=== PATIENT | female | born 1940 | race Caucasian/White ===

== ENCOUNTER 2017-01-26 17:46 | Inpatient (IN) ==
[2017-01-26] MEDS ORDERED: NORCO-5 PO ONE (19:42)
--- NOTE | 2017-01-26 19:42 | PROVIDER DOCUMENTATION ---
HPI-Musculoskeletal Pain/Inj - GENERAL Chief Complaint: Back Pain Stated Complaint: RT HIP,LEG PAIN Time Seen by Provider: 01/26/17 19:19 Source: patient, family (son) - HX OF PRESENT ILLNESS-MUSKULOSKELTAL Nature of Presenting Problem: 76 yo female presents to ER with c/o severe pain to right hip to right ankle since yesterday morning. She has bipolar disorder and her son thought that she was having an episode and took her to [facility] ER for psych evaluation. She was medically cleared but they never did any x-rays. He states that she does have muscle spasms and has even had botox injections to that leg; but this pain seemed more severe in her reaction. She does normally have a contracture to that same leg. On questioning of the son post x-rays, he did state that patient fell 1 month ago. Quality of Pain: reports: aching Severity in ED: severe Onset/Duration: 24 hours ago Timing: still present Modifying Factors: improves with: movement (worsens), palpation (worsens) Any recent injury?: No Similar Symptoms Previously?: Yes Recently seen or treated by another doctor?: No - HIP/PELVIS PAIN/INJURY Hip Pain Location: reports: hip (R) Pain Radiation: reports: lower legs Context / Method of Injury: reports: unknown Associated Symptoms: reports: muscle spasms Review of Systems - Adult - REVIEW OF SYSTEMS - ADULT Constitutional: reports: no symptoms reported Eyes: reports: no symptoms reported Ears, Nose, Mouth & Throat: reports: no symptoms reported Cardiovascular: reports: no symptoms reported Respiratory: reports: no symptoms reported Gastrointestinal: reports: no symptoms reported Genitourinary: reports: no symptoms reported Musculoskeletal: reports: see HPI, bone pain, joint pain Integumentary: reports: no symptoms reported Neurological: reports: no symptoms reported Psychiatric: reports: no symptoms reported Endocrine: reports: no symptoms reported Hematologic/Lymphatic: reports: no symptoms reported Allergic/Immunologic: reports: no symptoms reported All Other Systems: Reviewed and Negative Past History - Adult - PAST MEDICAL HISTORY-ADULT Review of Records: reports: Old Records Reviewed, Nursing Assessment Review, Medications Reviewed, Social history reviewed & non-contributory. Cardiovascular: reports: HTN, hyperlipidemia Neurological: reports: CVA, stroke deficits (right sided) Psychiatric: reports: bipolar - PRIOR SURGERIES/PROCEDURES Surgical/Procedure History: reports: none - IMMUNIZATION STATUS Childhood Immunizations: See Nurse Assessment Flu Vaccine: See Nurse Assessment - FAMILY HISTORY Family History: reviewed, not pertinent - SOCIAL HISTORY Smoking: non-smoker Substance Use: none/never, denies Alcohol Use Frequency: never Living Situation: family (son) Physical Exam-Injury Related - Physical Exam-Injury Related Initial Vital Signs Reviewed: Yes General Appearance: appears well, alert, moderate distress (due to pain) Eyes: PERRL/EOMI Respiratory: lungs clear, normal breath sounds, no respiratory distress Cardiovascular: normal peripheral pulses Peripheral Pulses: dorsalis-pedis (R): 1+, dorsalis-pedis (L): 1+ Extremity: tenderness (flexed position in air, has contractures,) Integumentary: normal color, warm/dry Neurologic: other (broken speech d/t stroke, she seens to answer questions appropriately) Psych/Mental Status: anxious - Glascow Coma Score Best Eye Response (Bren): (4) open spontaneously Best Verbal Response ([place]): (5) oriented Best Motor Response (Bren): (6) obeys commands [place] Total: 15 Progress - PLAN OF CARE/RESULTS Progress/Plan/Lab Results: Vital Signs - 8 hr 01/26/17 17:54 Pulse Rate 128 H Respiratory Rate 18 Blood Pressure 121/67 O2 Sat by Pulse Oximetry 96 Laboratory Results - last 24 hr 01/26/17 01/26/17 01/26/17 20:45 20:45 20:45 WBC 12.36 H RBC 4.54 Hgb 13.7 Hct 39.7 MCV 87.4 MCH 30.2 MCHC 34.5 RDW Std Deviation 12.7 Plt Count 258 MPV 10.6 H Immature Gran % (Auto) 0.5 Neut % (Auto) 77.3 H Lymph % (Auto) 12.1 L [place] % (Auto) 9.9 H Eos % (Auto) 0.1 Baso % (Auto) 0.1 Immature Gran # (Auto) 0.06 H Neut # (Auto) 9.57 H Lymph # (Auto) 1.49 [place] # (Auto) 1.22 H Eos # (Auto) 0.01 Baso # (Auto) 0.01 PT 11.4 INR 1.08 PTT (Actin FS) 25.7 Sodium 140 Potassium 4.0 Chloride 102 Carbon Dioxide 24 L Anion Gap 14 BUN 16 Creatinine 0.7 Estimated GFR/1.73 m2 > 60 BUN/Creatinine Ratio 23 Glucose 125 H Calculated Osmolality 282 Calcium 9.5 Total Bilirubin 0.98 AST 38 H ALT 30 Alkaline Phosphatase 116 H Total Protein 7.0 Albumin 3.7 Globulin 3.3 Albumin/Globulin Ratio 1.1 Orders Category Date Time Status Vega Cath Insertion ORDERED Care 01/26/17 20:23 Active IV Insertion ORDERED Care 01/26/17 20:20 Completed ANKLE COMPLETE RIGHT [RAD] Stat Exams 01/26/17 19:39 Taken CHEST-1 VIEW [RAD] Stat Exams 01/26/17 19:39 Taken FEMUR 1 VIEW RIGHT [RAD] Stat Exams 01/26/17 19:39 Taken LOWER LEG-RIGHT [RAD] Stat Exams 01/26/17 19:39 Taken PELVIS W/O CONTRAST [CT] Stat Exams 01/26/17 21:06 Ordered PELVIS [RAD] Stat Exams 01/26/17 20:23 Taken CBC WITH ELECTRONIC DIFF [HEME] Stat Lab 01/26/17 20:45 Completed COMPREHENSIVE METABOLIC PANEL [CHEM] Stat Lab 01/26/17 20:45 Completed PROTIME WITH INR [COAG] Stat Lab 01/26/17 20:45 Completed PTT [COAG] Stat Lab 01/26/17 20:45 Completed URINALYSIS W/POSS RFLX CULT [URINALYSIS] Stat Lab 01/26/17 20:23 Uncollected Hydrocodone/APAP 5 mg/325 mg [Lennox-5] Med 01/26/17 19:42 Discontinued 1 each PO NOW ONE Morphine Med 01/26/17 20:51 Discontinued 1 mg IV NOW ONE Ondansetron [Zofran] Med 01/26/17 20:51 Discontinued 4 mg IV NOW ONE EKG [EKG] Stat Ther 01/26/17 20:44 Ordered 1999-Discussed patient case with Dr. Manuel; he agreed with admission. Result Diagrams: 01/26/17 20:45 01/26/17 20:45 - XRAY 1 XRAY: Right XRAY Study: Hip Impression: Abnormal (displaced fermoral neck fracture) XRAY Interpretation: Interpreted by Dr. Manuel - CONSULTS/PCP/HOSPITALIST Notification #1 *Consult/PCP/Hospitalist*: Sr. Carr Time Discussed: 20:56 (reconciliation accountant orthopedic doctor) Consult Disposition: other (will consult on patient) Departure - Departure Time of Disposition Decision: 20:58 DIAGNOSIS: Right hip pain Hip fracture, right Qualifiers: Encounter type: initial encounter Fracture type: closed Qualified Code(s): S72.001A - Fracture of unspecified part of neck of right femur, initial encounter for closed fracture Disposition: ADMITTED INPATIENT 09 Certified Medical Emergency: Emergent Condition: Fair Referrals and Follow-Ups: Luke Barton MD [Primary Care Provider] - - Critical Care Note This patient required my direct & personal management of CC.: No Attestation - Physician/ GUILLERMINA Attestation Patient care was provided by Advanced Practice Provider:: Yes Advanced Practice Provider:: Maricel Toure Advanced Practice Provider documentation review:: The Mid-level provider documentation, treatment plan and medical decision making was reviewed by the physician who agrees with all treatment and medical decision making by the MLP.
[2017-01-26] MEDS ORDERED: ZOFRAN IV ONE (20:51)
[2017-01-26] MEDS ORDERED: MORPHINE IV ONE (20:51)
[2017-01-26 21:03] LABS: MANUAL DIFF NEEDED? NO
[2017-01-26 21:09] LABS: BASO% 0.1 % (0.0-0.8); EOS# 0.01 X1000 (0.0-0.7); EOS% 0.1 % (0.0-10.0); HEMATOCRIT 39.7 % (37.0-47.0); HEMOGLOBIN 13.7 g/dL (12.0-16.0); IMM GRAN# 0.06 X1000 (0.0-0.04); IMM GRAN% 0.5 % (0.0-0.5); LYMPH# 1.49 X1000 (1.2-3.4); LYMPH% 12.1 % (20.5-51.1); MCH 30.2 PG (27-31); MCHC 34.5 g/dL (33-37); MCV 87.4 FL (81-99); MONO# 1.22 X1000 (0.11-0.59); MONO% 9.9 % (1.7-9.3); MPV 10.6 FL (7.4-10.4); NEUT% 77.3 % (42.2-75.2); PLT 258 X1000 (130-400); RBC 4.54 XMIL (4.2-5.4)
[2017-01-26 21:19] LABS: INR 1.08; PROTIME 11.4 Seconds (9.2-11.7); PTT 25.7 Seconds (22.0-36.0)
[2017-01-26 21:27] LABS: AGAP 14; ALBUMIN 3.7 g/dL (3.5-5.0); ALKALINE PHOSPHATASE 116 U/L (32-104); BUN 16 mg/dL (8-22); CALCIUM 9.5 mg/dL (8.8-10.2); CHLORIDE 102 mmol/L (98-107); COSMO 282; GOT 38 U/L (10-30); GPT 30 U/L (10-36); SODIUM 140 mmol/L (136-145); TCO2 24 mmol/L (25-35); TOTAL BILIRUBIN 0.98 mg/dL (0.20-1.00)
--- NOTE | 2017-01-26 23:09 | HISTORY AND PHYSICAL ---
PRIMARY CARE PHYSICIAN: The patient does not recall. CHIEF COMPLAINT: Right hip pain. HISTORY OF PRESENTING ILLNESS: A 76-year-old female with a history of CVA with right-sided paresis, dementia, hypertension who was brought to the emergency department by her son due to patient having moderate amount of pain in the right hip. As per son, patient may have fell about a month ago but because she is bedbound, he did not realize that there was an issue. However about a day ago she started complaining of right hip pain and then she was taken to [facility] emergency department and she was evaluated for her hip , bipolar and dementia issues. However no x- rays were done of the hip. The patient subsequently had moderate amount of pain when she went home and her son brought her to emergency department again at [facility]. Patient was evaluated here. She had imaging done which did show a right displaced femoral neck fracture. Subsequently she will need hospitalization for surgical evaluation. The patient is a poor historian. Most history is obtained from her son. At time my examination, patient had denied any headache, fever, chills, chest pain, shortness of breath. PAST MEDICAL HISTORY: Bipolar disorder, CVA with right-sided paresis, dementia , hypertension, hyperlipidemia. PAST SURGICAL HISTORY: None. ALLERGIES: No known drug allergies. CURRENT MEDICATIONS: As listed in MAR. SOCIAL HISTORY: No history of smoking, alcohol or illicit drug use. FAMILY HISTORY: Positive for coronary disease in father. REVIEW OF SYSTEMS: Limited due to patient's dementia. PHYSICAL EXAMINATION: GENERAL: Elderly female. She is resting somewhat comfortably. VITAL SIGNS: Pulse 128, respiration 18, blood pressure 121/67, saturating 96%. HEENT: Extraocular movements intact. PERRLA. NECK: No masses. CHEST: Clear to auscultation. CARDIOVASCULAR: Regular rate and rhythm. ABDOMEN: Soft. Positive bowel sounds. EXTREMITY: Right hip tenderness. NEURO: She is awake, arousable. : No bladder distention. SKIN: Warm. LABORATORIES AND STUDIES: WBC 12.36, hemoglobin 13.7, hematocrit 39.7, platelets 258,000. Sodium 140, potassium 4.0, chloride 102, CO2 24, BUN is 16, creatinine 0.7, glucose is 125. ASSESSMENT: This is a 76-year-old female with a history of cerebrovascular accident with right- sided paresis and dementia, hypertension, who is basically wheelchair bound, was brought to the emergency department due to worsening pain in the right hip. Apparently, she may have fell a month ago as per son however exact time is not known. She had imaging done in the emergency room which was consistent with a right displaced femoral neck fracture. Subsequently , she will need hospitalization for further management. 1. Right hip pain. 2. History of cerebrovascular accident with right-sided paresis. 3. Hypertension. 4. Dementia. PLAN: 1. We will admit patient to medical floor with telemetry. 2. We will give patient adequate pain control. 3. We will keep patient NPO. 4. Orthopedics was already consulted in the ER. 5. We will monitor blood pressure. Restart all home medicines. 6. We will put patient on DVT prophylaxis with SCDs. 7. We will continue to follow and reassess. cc: Magen Hameed MD MTDD
[2017-01-27 00:12] LABS: URINE SOURCE CATH
[2017-01-27 00:22] LABS: BILIRUBIN URINE NEGATIVE (NEGATIVE); BLOOD URINE TRACE (NEGATIVE); COLOR ORANGE; GLUCOSE URINE NEGATIVE (NEGATIVE); LEUKOCYTES URINE LARGE (NEGATIVE); NITRITE URINE POSITIVE (NEGATIVE); PROTEIN URINE 300 mg/dL (NEGATIVE); SP GRAVITY URINE 1.024; TURBIDITY URINE TURBID (CLEAR); UROBILINOGEN URINE NORMAL (NORMAL)
[2017-01-27 00:33] LABS: UR EPITHELIAL CELLS <10 /HPF (<10); URINE BACTERIA 4+ /HPF; URINE CULTURE NEEDED? YES; URINE MICRO REVIEW NEEDED? YES; URINE WBC TNTC /HPF (<10)
[2017-01-27] MEDS ORDERED: ZOFRAN IV PRN (00:45)
[2017-01-27] MEDS ORDERED: NS 1,000 ML IV SCH (00:45)
[2017-01-27 01:02] LABS: URINE CASTS NONE SEEN
[2017-01-27 05:33] LABS: MANUAL DIFF NEEDED? NO
[2017-01-27 05:41] LABS: BASO% 0.2 % (0.0-0.8); EOS# 0.01 X1000 (0.0-0.7); EOS% 0.1 % (0.0-10.0); HEMATOCRIT 36.8 % (37.0-47.0); HEMOGLOBIN 12.7 g/dL (12.0-16.0); IMM GRAN# 0.06 X1000 (0.0-0.04); IMM GRAN% 0.5 % (0.0-0.5); LYMPH# 2.37 X1000 (1.2-3.4); LYMPH% 19.5 % (20.5-51.1); MCH 30.5 PG (27-31); MCHC 34.5 g/dL (33-37); MCV 88.5 FL (81-99); MONO# 1.28 X1000 (0.11-0.59); MONO% 10.5 % (1.7-9.3); MPV 10.9 FL (7.4-10.4); NEUT% 69.2 % (42.2-75.2); PLT 223 X1000 (130-400); RBC 4.16 XMIL (4.2-5.4)
[2017-01-27 06:11] LABS: AGAP 13; BUN 18 mg/dL (8-22); CALCIUM 8.7 mg/dL (8.8-10.2); CHLORIDE 106 mmol/L (98-107); COSMO 286; SODIUM 142 mmol/L (136-145); TCO2 23 mmol/L (25-35)
--- NOTE | 2017-01-27 09:25 | Diag Imaging Result Doc PS360 ---
PELVIS W/O CONTRAST - 01/26/2017 INDICATION: right femoral neck fracture TECHNIQUE: A CT dose reduction protocol was used. COMPARISON: None FINDINGS: There is a badly displaced, comminuted intertrochanteric fracture of the right proximal femur. No dislocations. There are contour deformities of the left-sided pubic rami compatible with old healed fractures. There is advanced vascular disease of the distal aorta and its branches. There are severe compression fractures of L4 and L5, with about 75% and 50% loss of height respectively. No bony retropulsion. IMPRESSION: 1. Severely displaced right intertrochanteric proximal femur fracture. 2. Presumably old compression fractures in the lumbar spine. 3. Severe osteopenia. Electronically signed by Charles Cohn 01/27/2017 9:23 AM
--- NOTE | 2017-01-27 09:27 | Diag Imaging Result Doc PS360 ---
LOWER LEG-RIGHT - 01/26/2017 INDICATION: severe pain from hip to ankle TECHNIQUE: Two views COMPARISON: None FINDINGS: Bones are intact and normally aligned. Joint spaces and soft tissues are clear. IMPRESSION: Severe osteopenia but no acute disease. Electronically signed by Charles Cohn 01/27/2017 9:25 AM
--- NOTE | 2017-01-27 09:27 | Diag Imaging Result Doc PS360 ---
PELVIS, FEMUR 1 VIEW RIGHT - 01/26/2017 INDICATION: pain TECHNIQUE: X-ray pelvis, x-ray right femur four views COMPARISON: None FINDINGS: There is a badly displaced intertrochanteric right hip fracture. No dislocations. IMPRESSION: Badly displaced intertrochanteric right proximal femur fracture. Electronically signed by Charles Cohn 01/27/2017 9:25 AM
--- NOTE | 2017-01-27 09:28 | Diag Imaging Result Doc PS360 ---
ANKLE COMPLETE RIGHT - 01/26/2017 INDICATION: severe pain from hip to ankle TECHNIQUE: Three views COMPARISON: None FINDINGS: Bones are intact and normally aligned. Joint spaces and soft tissues are clear. IMPRESSION: Severe osteopenia but no acute disease. Electronically signed by Charles Cohn 01/27/2017 9:26 AM
--- NOTE | 2017-01-27 09:29 | Diag Imaging Result Doc PS360 ---
CHEST-1 VIEW - 01/26/2017 INDICATION: severe pain from hip to ankle TECHNIQUE: COMPARISON: 01/01/2015 FINDINGS: Lung volumes are severely low. There is some bronchovascular crowding bilaterally. Stable calcified granuloma at the right apex. Stable severe vascular disease of the aortic arch and descending thoracic aorta. No definite infiltrates. IMPRESSION: Severely low lung volumes but no definite acute disease. Electronically signed by Charles Cohn 01/27/2017 9:27 AM
[2017-01-27] MEDS ORDERED: KEFZOL 1 GM/D5W 1 GM/50 ML IVPB IV ONE (09:39)
[2017-01-27] MEDS: NORCO-5 PO SCH ×3 (10:19→22:45)
[2017-01-27] MEDS: NORVASC PO SCH (10:20)
[2017-01-27] MEDS: ROCEPHIN 1 GM/NS 1 GM/50 ML IVPB IV SCH (10:20)
--- NOTE | 2017-01-27 11:24 | CONSULTATION ---
DATE OF CONSULTATION: 01/27/2017 CHIEF COMPLAINT: Right hip pain. HISTORY OF PRESENT ILLNESS: This is a very pleasant, 76-year-old female, who was examined in bed 485. She is currently in the room alone. Her son is currently not here. She is somewhat of a poor historian. She tells me for about 2 days now she has been having a moderate amount of pain in her right hip. She tells me she did not fall or anything, but per report from emergency department the patient may have fallen a few days ago and also may have fell a month ago. She has only been complaining of pain now for a couple days, was taken to [facility], and there was evaluated with no x-rays taken. She was subsequently sent home and continued to have pain and discomfort. The patient was once again brought in to [facility]. She has had x-rays and CT scan, which demonstrate a comminuted intertrochanteric hip fracture to the right. Currently she denies any chest pain, shortness of breath. Her pain is controlled. PAST MEDICAL HISTORY: This includes bipolar disorder, history of CVA with right -sided hemiparesis, dementia, hypertension, hyperlipidemia. PAST SURGICAL HISTORY: None. ALLERGIES: No known drug allergies. MEDICATIONS: Please see MAR. SOCIAL HISTORY: No alcohol, no tobacco. No illicit drugs. Her son lives with her now. FAMILY HISTORY: Cardiac disease. REVIEW OF SYSTEMS: Limited secondary to patient's dementia. PHYSICAL EXAMINATION: General: She is alert and oriented to person and place. HEENT: Head is normocephalic, atraumatic. Eyes: Pupils equal, round, react to light and accommodation. Extraocular muscles intact bilaterally. Ears: No otalgia or otorrhea. Throat is not injected. Neck: Supple. Trachea is midline. Cardiovascular: Regular rate and rhythm. Respiratory: No distress noted. Chest rise equal bilaterally. Abdomen: Soft, nontender. Musculoskeletal: She has got a right hip set in a flexed position with the knee flexed. She will not allow me to straighten the leg. She has shortening of the leg. She had pain with internal and external rotation, and tenderness over the lateral hip. Skin: Warm, dry, and intact distally. Vital Signs: Her temperature is 98.7 degrees, pulse 107, respirations 20, blood pressure 127/68. LABORATORY STUDIES: Hemoglobin is 12.7, hematocrit 36.8, platelet count 223, 000. Urinalysis was positive for protein, nitrites, leukocytes and 4+ urine bacteria. IMPRESSION: 1. Comminuted right intertrochanteric hip fracture, unknown etiology. 2. History of right-sided hemiparesis 18 years ago. cerebrovascular accident. 3. Acute urinary tract infection. RECOMMENDATIONS: From the orthopedic standpoint, I discussed with the patient I will contact her son whose name is Vik Colunga; his phone number is regarding his mother's condition. I recommend operative fixation of the right hip fracture secondary to patient's pain and discomfort. Patient is a non ambulator. This will help with her transfers. So, she has pain control. Will keep her n.p.o. for midnight. We will also make sure she is started on antibiotics for her UTI. Will discuss with Son, if he agrees will plan for OR in am, if he chooses nonoperative will keep pain controlled and monitor. Thank you for allowing me to participate in the care of Korin Grewal. cc: DO FELECIA Cohen
--- NOTE | 2017-01-27 11:30 | PROGRESS NOTE ---
DATE: 01/27/2017 SUBJECTIVE: The patient complaining of [id number]-[id number] pain in the right hip. No fever, chills noted. Mild pain upon urination. OBJECTIVE: Vital Signs: Temperature 98.2 degrees, heart rate 99, respiratory rate 17, blood pressure 121/61. O2 saturation 94% on room air. General: This is a 76-year-old female lying in bed in no acute distress. HEENT: Head is normocephalic, atraumatic. Anicteric sclerae and pale conjunctivae. Mucous membranes moist. Neck: Supple. No JVD noted. No carotid bruits. Cardiovascular: S1, S2 heard. No murmurs, gallops, or rubs. Regular rate and rhythm. Respiratory: Clear bilaterally to auscultation. No work of breathing or using accessory muscles. Abdomen is soft, nontender to palpation. Bowel sounds present. No organomegaly. Extremities: There is pain to palpation to the right hip. Peripheral pulses present in both legs. Neurologic: The patient is alert and oriented x3. Moves 4 extremities. LABORATORY DATA: White cell count 12.4, hemoglobin 12.7, hematocrit 36.8, platelets 223,000. BMP unremarkable. ASSESSMENT AND PLAN: 1. Right hip pain. 2. Hypertension. 3. Dementia. 4. History of cerebrovascular accident with right-sided paresis. PLAN: The patient has been admitted to the hospital for this right hip pain. The patient is not a good historian, so we are not exactly sure if se had a fall 1 month ago and since then she was hurting. She is now feeling fine. In any case, Dr. Goddard from Orthopedics has been consulted, and apparently he is planning to take him to the OR tomorrow. Will follow his recommendations. We will keep her n.p.o. after midnight. For hypertension, we will continue with home medications. For UTI, the urine culture is pending, but we have started her on ceftriaxone 1 g IV q. 24 hours. For dementia, we will continue home medications as well. cc: Roger Castillo MD
[2017-01-27] MEDS: REMERON PO SCH (19:37)
[2017-01-28] MEDS: REMERON PO SCH ×2 (01:08→21:29)
--- NOTE | 2017-01-28 01:22 | ED EKG INTERP ---
This chart was entered by Landen Vences Scribe, acting as scribe for Cristopher Manuel MD. EKG Interpretation - EKG Time of EKG reading by physician:: 21:00 EKG Read and Signed by:: Cristopher Manuel EKG Interpretation (*Must complete 3 of following elements*): Abnormal (ST & T wave abnormality, consider inferior ischemia) Rate: 114 Rhythm: Sinus tachycardia This chart was documented by the indicated scribe, (Landen Vences Scribe) and accurately reflects the services I performed and decisions made by me, Cristopher Manuel MD, as attested by the provider's signature.
[2017-01-28 05:19] LABS: MANUAL DIFF NEEDED? NO
[2017-01-28] MEDS: NORCO-5 PO SCH (05:29)
[2017-01-28 05:32] LABS: BASO% 0.4 % (0.0-0.8); EOS# 0.25 X1000 (0.0-0.7); EOS% 2.1 % (0.0-10.0); HEMOGLOBIN 12.1 g/dL (12.0-16.0); IMM GRAN# 0.16 X1000 (0.0-0.04); IMM GRAN% 1.3 % (0.0-0.5); LYMPH# 2.74 X1000 (1.2-3.4); LYMPH% 22.7 % (20.5-51.1); MCH 29.4 PG (27-31); MCHC 32.7 g/dL (33-37); MONO# 1.07 X1000 (0.11-0.59); MONO% 8.9 % (1.7-9.3); MPV 10.4 FL (7.4-10.4); NEUT% 64.6 % (42.2-75.2); PLT 245 X1000 (130-400); RBC 4.11 XMIL (4.2-5.4)
[2017-01-28] MEDS ORDERED: GEODON IM PRN (08:30)
[2017-01-28] MEDS ORDERED: STERILE WATER INJ. INJ PRN (08:30)
--- NOTE | 2017-01-28 09:02 | PROGRESS NOTE ---
DATE: 01/28/2017 SUBJECTIVE: The patient was seen in examination in bed 485 today. She is very pleasant, 76-year- old female. Currently, she states her pain is well controlled. I spoke with her son, who is Vik Colunga, yesterday evening. Patient's son was very adamant about her not having any surgery done on her right hip. She is telling me also this morning she does not want to proceed with any surgical procedures for her right hip. Currently, she denies any chest pain or shortness of breath. PHYSICAL EXAMINATION: Extremities: On examination to the right lower extremity, she has got tenderness to palpation over the lateral aspect of the hip. Hip sits in a slight flexed and rotated position. She has got some discomfort with internal and external rotation. Skin: Warm, dry, and intact. No open wounds or sores. Vital Signs: Temperature 98.7 degrees, pulse 80, respirations 16, blood pressure 117/61. LABORATORY STUDIES: Hemoglobin is 12.1, hematocrit 37, white blood cell count 12.08, platelet count is 245,000. ASSESSMENT: 1. Comminuted right intertrochanteric hip fracture. Unknown etiology and timeline, likely old. 2. History of right-sided hemiparesis 18 years ago, cerebrovascular accident. 3. Urinary tract infection with leukocytosis. RECOMMENDATIONS: I had a thorough discussion with the son on the phone yesterday regarding his mother's current medical condition. At this time, he is electing and also she is electing to forego any surgical procedure on her right hip. I went over the risks, benefits, and complications associated with and without surgical fixations. I discussed with him pain control for her. We have also discussed with him concerns for bedsores and other complication arise for not being able to tolerate transfers and move very well. He understands this. I will continue to follow her throughout her hospital stay. Any concerns or questions, please contact me. cc: Isra Goddard, DO
[2017-01-28] MEDS: ROCEPHIN 1 GM/NS 1 GM/50 ML IVPB IV SCH (10:17)
[2017-01-28] MEDS: NORVASC PO SCH (10:17)
[2017-01-28] MEDS: NORCO-10 PO PRN ×2 (10:26→18:12)
--- NOTE | 2017-01-28 12:22 | PROGRESS NOTE ---
DATE: 01/28/2017 SUBJECTIVE: Patient is complaining of mild to moderate pain in the right hip. The patient looks to me demented because sometimes she keeps repeating again, again, and again my son it is okay, my son it is okay. No other complaints today. OBJECTIVE: Vital Signs: Temperature 98.7 degrees, heart rate 80, respiratory rate 16, blood pressure 117/61, O2 saturation 96% on room air. General: This is a chronically ill-looking, frail, and demented, 76-year-old female lying in bed, in no acute distress. HEENT: Head is normocephalic, atraumatic. Neck: Supple. No JVD noted. No carotid bruits. Cardiovascular: S1, S2 heard. No murmurs, gallops, or rubs. Regular rate and rhythm. Respiratory: Clear bilaterally to auscultation. No work of breathing or using accessory muscles. Abdomen: Soft. Nontender to palpation. Bowel sounds present. No organomegaly. Extremities: Pain to palpation in the right hip. It is a little bit rotated externally. Neurological: The patient is awake but disoriented in time and place. LABORATORY DATA: Reviewed. ASSESSMENT AND PLAN: 1. Right intertrochanteric hip fracture. Patient has been evaluated by Dr. Goddard from orthopedic surgery. He talked with son over the phone and apparently the patient and also he refuses to have surgery although that will be beneficial for the patient. At this time, I guess because of this problem this patient we will okay today for going to a rehab facility. 2. Urinary tract infection. Urine culture has shown gram-negative rods. The patient is on ceftriaxone. We will continue with the same management. 3. Dementia. We do not have more information about this condition but we will continue with home medications. cc: Roger Castillo MD
[2017-01-28] MEDS: MORPHINE IV PRN ×2 (14:21→21:28)
[2017-01-29 05:30] LABS: MANUAL DIFF NEEDED? NO
[2017-01-29 05:32] LABS: BASO% 0.3 % (0.0-0.8); EOS# 0.32 X1000 (0.0-0.7); EOS% 2.8 % (0.0-10.0); HEMATOCRIT 33.1 % (37.0-47.0); HEMOGLOBIN 10.8 g/dL (12.0-16.0); IMM GRAN# 0.14 X1000 (0.0-0.04); IMM GRAN% 1.2 % (0.0-0.5); LYMPH# 2.85 X1000 (1.2-3.4); LYMPH% 25.3 % (20.5-51.1); MCH 29.6 PG (27-31); MCHC 32.6 g/dL (33-37); MCV 90.7 FL (81-99); MONO# 1.18 X1000 (0.11-0.59); MONO% 10.5 % (1.7-9.3); MPV 10.1 FL (7.4-10.4); NEUT% 59.9 % (42.2-75.2); PLT 264 X1000 (130-400); RBC 3.65 XMIL (4.2-5.4)
--- NOTE | 2017-01-29 07:59 | EKG Report ---
Test Performed on : 01/26/2017 9:00:49 PM Test Reason : hip fracture protocol Blood Pressure : / mmHG Vent. Rate : 114 BPM Atrial Rate : 114 BPM P-R Int : 132 ms QRS Dur : 048 ms QT Int : 318 ms P-R-T Axes : 029 -06 018 degrees QTc Int : [address] \T\ T wave abnormality, consider inferior ischemia Abnormal ECG No previous ECGs available Unconfirmed Result
[2017-01-29] MEDS: ROCEPHIN 1 GM/NS 1 GM/50 ML IVPB IV SCH (09:20)
[2017-01-29] MEDS: NORVASC PO SCH (09:20)
[2017-01-29] MEDS: MORPHINE IV PRN (09:21)
[2017-01-29] MEDS: NORCO-10 PO PRN ×2 (09:21→16:20)
--- NOTE | 2017-01-29 14:36 | PROGRESS NOTE ---
DATE: 01/29/2017 SUBJECTIVE: The patient was seen and examined. No complaint. OBJECTIVE: Vital Signs: Blood pressure 131/61, pulse 101, respirations 16, temperature 98.5 degrees, saturation of 91% on room air. General Appearance: A well-developed, well-nourished white female in no acute distress. Minimal pain on her left hip. HEENT: Anicteric. Clear conjunctivae. Neck: Supple. No JVD. No bruit. Cardiovascular: S1 and S2. Normal rate and rhythm. No murmur, rubs, or gallops. Pulmonary: Clear to auscultation bilaterally. Gastrointestinal: Soft, nontender, nondistended. Normoactive bowel sounds. Musculoskeletal: Right hip pain. LABORATORY DATA: White count today is 11.26, hemoglobin 10.8, hematocrit 33.1, platelets of 264,000. No chemistry for today. ASSESSMENT AND PLAN: The patient is a 76-year-old admitted to the hospital for a mechanical fall fracturing her right intertrochanteric. 1. Right intertrochanteric hip fracture. Orthopedics is following. At this point, there is no decision whether surgery is needed or not. The patient can go one way or the other. She had a stroke in the past effecting her right side. She does not move her right side much; therefore, they would like avoid surgery; however, if it needs to be done to control the pain, they are willing to do it. 2. Urinary tract infection growing gram-negative rods. The patient is on Rocephin. The culture grew out Proteus greater than 100,000 colonies and is sensitive to Rocephin. We will keep the patient on the Rocephin for now. 3. Hypertension. Continue Norvasc. CODE STATUS: The patient is a full code.
[2017-01-29] MEDS: REMERON PO SCH (20:58)
[2017-01-30 05:18] LABS: MANUAL DIFF NEEDED? NO
[2017-01-30 05:38] LABS: BASO% 0.3 % (0.0-0.8); EOS# 0.37 X1000 (0.0-0.7); EOS% 3.3 % (0.0-10.0); HEMATOCRIT 33.5 % (37.0-47.0); IMM GRAN% 0.9 % (0.0-0.5); LYMPH# 2.16 X1000 (1.2-3.4); MCH 29.9 PG (27-31); MCHC 32.8 g/dL (33-37); MONO# 1.07 X1000 (0.11-0.59); MONO% 9.4 % (1.7-9.3); MPV 10.2 FL (7.4-10.4); NEUT% 67.1 % (42.2-75.2); PLT 301 X1000 (130-400); RBC 3.68 XMIL (4.2-5.4)
[2017-01-30 06:15] LABS: AGAP 9; BUN 20 mg/dL (8-22); CALCIUM 8.3 mg/dL (8.8-10.2); CHLORIDE 99 mmol/L (98-107); COSMO 277; POTASSIUM 4.3 mmol/L (3.5-5.1); SODIUM 137 mmol/L (136-145); TCO2 29 mmol/L (25-35)
[2017-01-30] MEDS: NORVASC PO SCH (09:11)
[2017-01-30] MEDS: ROCEPHIN 1 GM/NS 1 GM/50 ML IVPB IV SCH (09:11)
--- NOTE | 2017-01-30 12:00 | PROGRESS NOTE ---
DATE: 01/30/2017 SUBJECTIVE: The patient is feeling well. She has no complaints, still having pain when she moved. No nausea, no vomiting. OBJECTIVE: Vital Signs: Blood pressure 114/64, pulse 111, respirations 17, temperature 99.2 degrees, saturations of 94% on room air. General Appearance: Thin, elderly, white female in mild distress due to pain. HEENT: Anicteric sclerae. Clear conjunctivae. Neck: Supple. No JVD. No bruit. Cardiovascular: S1, S2. Normal rate and rhythm. No murmur, rubs, or gallops. Pulmonary: Clear to auscultation bilaterally. GI: Soft, nontender, nondistended. Normoactive bowel sounds. Musculoskeletal: No clubbing, cyanosis, or edema. LABORATORY: White count 11.34, hemoglobin 11.0, hematocrit 33.5, platelets of 301. Chemistry: Sodium 137, potassium 4.3, chloride 99, bicarbonate 29, BUN 20, creatinine 0.6, glucose at 104. ASSESSMENT/PLAN: A 76-year-old admitted to the hospital for right hip fractures. 1. Right hip fractures. Apparently is not operable per orthopedics. The family want to take the patient home. Will continue pain control. Her pain is not often optimally controlled. Her son did not want her to go to a rehab. The patient has a stroke on that side. She does have any use for that side. She has significant pitting edema, but is not anything unusual for her. 2. Urinary tract infection. We will continue Rocephin for now. Once the patient goes home, she can go home with the oral antibiotics. 3. Hypertension. Continue Norvasc. 4. Code status. The patient is still a full code. DISPOSITION: Will plan to discharge the patient home in the morning once her pain is under control.
[2017-01-30] MEDS: MORPHINE IV PRN (19:46)
[2017-01-30] MEDS: REMERON PO SCH (21:00)
[2017-01-31 06:03] LABS: AGAP 9; BUN 17 mg/dL (8-22); CHLORIDE 99 mmol/L (98-107); COSMO 273; POTASSIUM 4.1 mmol/L (3.5-5.1); SODIUM 136 mmol/L (136-145); TCO2 28 mmol/L (25-35)
--- NOTE | 2017-01-31 07:46 | PROGRESS NOTE ---
DATE: 01/31/2017 Ms. Grewal was seen yesterday, on January 30, and met with her son. She has a displaced intertrochanteric right hip fracture. She is a non-ambulator. There is evidence to suggest the fracture may be 1-2 months old. I have discussed the risks and benefits of fixation and surgical treatment of the hip for pain control, which the patient has declined. Both the son and patient are aware that this may result in a nonunion or malunion or chronic pain. Decision ultimately, as she is a non-ambulator, is to wait and see if it will become less symptomatic over time. If it remains painful, then we will consider a [place] procedure in the future which could be done at any point in time down the road. We will be signing off the case. We will be happy to come back and see her on an as-needed basis. I have discussed with the son that if the pain is not improved within a month or so, then we will be happy to see her on an outpatient basis and schedule a Girdlestone procedure of the hip. cc: Jose Scott MD
[2017-01-31 08:42] VITALS: BP 131/66
[2017-01-31] MEDS: NORCO-10 PO PRN (08:56)
[2017-01-31] MEDS: NORVASC PO SCH (08:56)
[2017-01-31] MEDS: ROCEPHIN 1 GM/NS 1 GM/50 ML IVPB IV SCH (08:56)
--- NOTE | 2017-01-31 13:26 | PROGRESS NOTE ---
DATE: 01/31/2017 SUBJECTIVE: The patient is feeling well. Her pain is under control. No acute event reported by the overnight staff. OBJECTIVE: Vital Signs: Blood pressure 131/66, pulse of 96, respirations 17, temperature 98.6 degrees. Saturations of 91% on 2 L nasal cannula. General Appearance: Elderly white female in mild distress due to pain. HEENT: Anicteric. Clear conjunctivae. Neck: Supple. No JVD. No bruit. Cardiovascular: S1, S2. Normal rate and rhythm. No murmur, rubs, or gallops. Pulmonary: Clear to auscultation bilaterally. Gastrointestinal: Soft, nontender, and nondistended. Normoactive bowel sounds. Musculoskeletal: No clubbing, cyanosis, or edema. Right hip pain to palpation and moving. She has very little use of the left side of her body, it has started gera. ASSESSMENT AND PLAN: This is a 76-year-old admitted to the hospital for right trochanteric fracture: Right trochanteric fracture. Orthopedics saw the patient and did not think this is a surgical issue. At this point, the knee fracture appeared to be in a subacute to chronic. Discussed with family. The family did not want to take the risk to have the surgery. The only surgery she needs is the surgery. She has no use with the side. We will continue pain management. The patient may heal but may be nonunion when it is healed. We will continue pain management for now. We will send the patient home today with [place] and resume her home medications. Encouraged the patient to participate with palliative care.
--- NOTE | 2017-02-01 08:37 | DISCHARGE SUMMARY ---
ADMISSION DATE: 01/26/2017 DISCHARGE DATE: 01/31/2017 DATE OF ADMISSION: 01/26/2017. DATE OF DISCHARGE: 01/31/2017. CONSULTATIONS: Dr. Goddard with Orthopedics. PERTINENT PROCEDURES: 1. Pelvis CT showed a severely displaced right intertrochanteric proximal femur fracture. Presumably old compression fracture of the lumbar spine and severe osteopenia. 2. Patient also underwent an ankle chest femur lower extremity x-ray. 3. Hip and pelvis x-ray. DISCHARGE DIAGNOSES: 1. Right hip fractures. Son and patient have declined surgery at this time. She is nonambulatory. Evidence does suggest the fracture maybe 1-[address] Scott discussed the risk and benefits of fixation and surgical treatment of the hip for pain control. Again, which they declined but the son and the patient are aware this may result in a nonunion or a malunion, or chronic pain and their decision is to wait to see if she becomes less symptomatic over time. But if it remains painful, then they will consider a girdle stone procedure in the future to be done at any point in time down the road and to follow up in 1 month if the pain is not improved on an outpatient basis. 2. Urinary tract infection. Continue on p.o. antibiotics. 3. Hypertension. Continue Norvasc. 4. Dementia, stable. HOSPITAL COURSE: Ms. Grewal is a 76-year-old female with a history of: 1. Cerebrovascular accident. 2. Right-sided paresis. 3. Dementia. 4. Hypertension. Who was nonambulatory. Was brought to the emergency department by her son due to the patient having a moderate amount of pain in her right hip. As per her son, she fell about a month ago. Because she is bed bound, he did not realize there was an issue. However about a day prior to her admission, she started complaining of right hip pain and was taken to [place] emergency room, where she was evaluated for her hip, bipolar and dementia issues. However, no x -rays were done of the hip. The patient subsequently had moderate amount of pain when she went home. Her son brought her to [facility], where she was found to have a right displaced femoral neck fracture. She was admitted for surgical evaluation and found to have a urinary tract infection. She was started on IV antibiotics. Dr. Goddard initially spoke with the family, as well as Dr. Scott. They have decided against surgical measures secondary to the patient being nonambulatory and they just suggest pain control. Dr. Scott did make them aware of the fact that this may result in a nonunion or malunion, or chronic pain, and they would like to see if the patient will become less symptomatic over time. But if it remains painful, then consider a girdle stone procedure in the near future to be done at any point in time. Orthopedics did sign off the case and would see her on a p.r.n. basis. He did discuss with him that if the pain is not improved within a month or so, that he will be happy to see her on an outpatient basis and scheduled the girdle stone procedure at the hip. The patient is appropriate for discharge home with her son today and they have chosen Home Health with [facility]. VITAL SIGNS: Temperature 98.6 degrees, heart rate 96, respiration 17, blood pressure 131/66, O2 is 93%. DISCHARGE MEDICATIONS: 1. Norvasc 5 mg p.o. daily. 2. Aspirin 81 mg p.o. daily. 3. [place] 10 1 each p.o. every 6 hours p.r.n. 4. Remeron 22.5 mg p.o. at bedtime. 5. Multivitamin 1 cap p.o. daily. 6. Simvastatin 20 mg p.o. at bedtime. DISCHARGE DISPOSITION: The patient is being discharged home with home health with [facility] as well as with her son. DISCHARGE FOLLOWUP: The patient can follow up with Dr. Scott in 1 month as well as with her primary care physician, Dr. Barton in 2 weeks. SPECIAL INSTRUCTIONS: The patient can return to the emergency department for any worsening of symptoms. DISCHARGE TIME: 30 minutes. This is RICHARD Roche, doing a discharge summary for Dr. Franco. Dictated by RICHARD Roche for Felipe Franco MD cc: Luke Barton MD Addendum: I personally evaluated and examined the patient in conjunction to the OPERATIONS SECTION MANAGER and agreed with his assessments and disposition [facility]
== END 2017-01-31 13:39 | disposition home health service (06) ==
LOC: ED 17:46 → 4N 23:01 → SUATTDRO 23:01 → 4N 01-27 00:15
PROVIDERS: ATTEND Internal Medicine